=== PATIENT | female | born 1990 | race Two or more races ===

== ENCOUNTER 2017-11-15 08:22 | Emergency (ER) | payer OTHER ==
[2017-11-15 08:42] VITALS: BP 112/81; PULSE 98; TEMP 98.5; BMI 29.6
--- NOTE | 2017-11-15 09:33 | PDOC ---
History of Present Illness - General Chief Complaint: Sore Throat Stated Complaint: THROAT PAIN Time Seen by Provider: 11/15/17 09:14 - History of Present Illness Initial Comments: 11/15/17 09:29 CHIEF COMPLAINT: throat pain HISTORY OF PRESENT ILLNESS: 27 yo F with no significant PMH presents to [facility] with throat pain x 4 days. Denies fever, cough, runny nose, sneezing, vomiting, diarrhea. Reports difficulty swallowing and eating secondary to pain of throat. PAST MEDICAL HISTORY: Denies past medical history FAMILY HISTORY: Denies SOCIAL HISTORY: Denies tobacco, alcohol, illicit drug use. SURGICAL HISTORY: Denies ALLERGIES: No known drug allergies REVIEW OF SYSTEMS as per HPI PHYSICAL EXAM General Appearance: Well-appearing, appropriately dressed. No apparent distress. HEENT: Tonsil 2+ b/l with significant white exudate. EOMI, PERRLA, normal voice , TMs normal. No conjunctival pallor. No photophobia, scleral icterus. Respiratory/Chest: Lungs CTAB. Cardiovascular: RRR. S1, S2. Gastrointestinal/Abdominal: Normal bowel sounds. Abdomen soft, non-distended. No tenderness or rebound tenderness. No organomegaly, pulsatile mass, guarding , hernia, hepatomegaly, splenomegaly. Musculoskeletal/Extremities: Normal inspection. FROM of all extremities, normal capillary refill. Pelvis Stable. No CVA tenderness. No tenderness to extremities, pedal edema, swelling, erythema or deformity. Integumentary: Appropriate color, dry, warm. 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 Fully oriented, alert. Appropriate mood/affect. Motor strength 5/5. No appreciable EOM palsy, facial droop or sensory deficit. Past History - Past Medical History Allergies/Adverse Reactions: Allergies Allergy/AdvReac Type Severity Reaction Status Date / Time No Known Allergies Allergy Verified 11/15/17 08:39 Home Medications: Ambulatory Orders Amoxicillin - [Amoxicillin 500mg Capsule -] 500 mg PO BID #20 capsule 11/15/17 COPD: No Other medical history: denies. - Suicide/Smoking/Psychosocial Hx Smoking History: Never smoked *Physical Exam - Vital Signs Last Vital Signs Temp Pulse Resp BP Pulse Ox 98.5 F 98 H 16 112/81 100 11/15/17 08:39 11/15/17 08:39 11/15/17 08:39 11/15/17 08:39 11/15/17 08:39 Medical Decision Making - Medical Decision Making 11/15/17 09:30 27 yo F with no significant PMH [facility] with throat pain x 4 days. -strep swab amoxicillin sent to pharm *DC/Admit/Observation/Transfer Diagnosis at time of Disposition: Strep pharyngitis - Discharge Dispostion Disposition: HOME Condition at time of disposition: Stable Admit: No - Prescriptions Prescriptions: Amoxicillin - [Amoxicillin 500mg Capsule -] 500 mg PO BID #20 capsule - Referrals - Patient Instructions Printed Discharge Instructions: DI for Strep Throat Additional Instructions: Please take medications as prescribed; complete the ENTIRE course of medication even if your symptoms improve. If you develop any significant swelling in your throat, difficulty breathing, fever unrelieved by Motrin or Tylenol, vomiting, or diarrhea, please return to the ER. Por favor tome los medicamentos segn lo recetado; complete el curso completo de medicamentos, incluso si peg sntomas mejoran. Si desarrolla idalia hinchazn importante en la garganta, dificultad para respirar, fiebre que no se michelle con Motrin o Tylenol, vmitos o diarrea, regrese a la lauren de emergencias. Print Language: CITIZEN OF [place] - Post Discharge Activity
== END 2017-11-15 09:35 | disposition home or self-care (01) ==
LOC: JERFT 08:22
DX: J02.0 Streptococcal pharyngitis (principal)
CPT/HCPCS: 87070; 87430; 99281-25